=== PATIENT | female | born 1985 | race Caucasian/White ===

== ENCOUNTER 2018-11-19 18:50 | Emergency (ER) | payer OTHER ==
[~2018-11-19] VITALS: Ht 154.9 cm; Wt 86.2 kg
[2018-11-19] MEDS ORDERED: CYMBALTA60 MG PO (19:00)
[2018-11-19] MEDS ORDERED: PROPRANOLOL 1010 MG PO (19:01)
[2018-11-19 21:13] VITALS: BP 121/90
== END 2018-11-19 21:13 | disposition home or self-care (01) ==
LOC: M.ERS 18:50
DX: G43.909 Migraine, unspecified, not intractable, without status migrainosus (principal); R93.0 Abnormal findings on diagnostic imaging of skull and head, not elsewhere classified; R42 Dizziness and giddiness; Z90.49 Acquired absence of other specified parts of digestive tract; Z98.890 Other specified postprocedural states; Z87.442 Personal history of urinary calculi; Z88.2 Allergy status to sulfonamides